=== PATIENT | female | born 1965 | race Hispanic/Latino ===

== ENCOUNTER → 2018-06-28 | Outpatient (CLI) | payer BC ==
--- NOTE | 2018-07-04 08:37 | Diagnostic Imaging Report ---
#[id number] - MGSCRBIL #BILATERAL DIGITAL SCREENING MAMMOGRAM WITH CAD: 06/28/2018 CLINICAL: Routine screening. Comparison is made to exams dated: 06/18/2017 mammogram, 07/22/2015 mammogram and 07/10/2015 mammogram - [facility]. Current study contains 4 films. The tissue of both breasts is heterogeneously dense. This may lower the sensitivity of mammography. Current study was also evaluated with a Computer Aided Detection (CAD) system. There are benign calcifications in both breasts. No significant masses, calcifications, or other findings are seen in either breast. There has been no significant interval change. IMPRESSION: BENIGN There is no mammographic evidence of malignancy. A 1 year screening mammogram is recommended. The patient will be notified by letter of the results. Colten giles/ankush:07/01/2018 13:10:35 Roof Bolter Helper: Katlin NEUMANN(R)(M), [facility] letter sent: Compared to Prior B9 Mammogram BI-RADS: 2 Benign
== END ==
LOC: MAMMO 10:33
PROVIDERS: ATTEND Obstetrics & Gynecology
DX: Z12.31 Encounter for screening mammogram for malignant neoplasm of breast (principal)
CPT/HCPCS: 77067

== ENCOUNTER 2018-12-04 14:48 | Emergency (ER) | payer BC ==
[~2018-12-04] VITALS: Ht 162.6 cm; Wt 72.6 kg
--- OUTSIDE RECORDS SUMMARY | 2018-12-04 14:52 | XMS REPORT ---
[facility] Address Unknown Phone Unavailable Care Team Providers Care Physics Professor Name Role Phone CHRYSTAL DE LA O Unavailable Unavailable Problems This patient has no known problems. Allergies, Adverse Reactions, Alerts This patient has no known allergies or adverse reactions. Medications This patient has no known medications. Results Test Description Test Time Test Comments Text Results Atomic Results Result Comments MAMMOGRAPHY DIGITAL SCR BILAT 2018-06-28 13:04:00 [place] [address] Patient Name: GUTIERREZ LINDO MR #: [id number] : 1965 Age/Sex: 52/F Req #: [id number] [facility] Physician: Ordered by: CHRYSTAL DE LA O MD Report #: [id number] Location: MAMMO Room/Bed: Procedure: [id number] MG/MAMMOGRAPHY DIGITAL SCR BILAT Exam Date: 06/28/18 Exam Time: 1100 REPORT STATUS: Signed #[id number] - MGSCRBIL #BILATERAL DIGITAL SCREENING MAMMOGRAM WITH CAD: 06/28/2018 CLINICAL: Routine screening. Comparison is made to exams dated: 06/18/2017 mammogram, 07/22/2015 mammogram and 07/10/2015 mammogram - [facility]. Current study contains 4 films. The tissue of both breasts is heterogeneously dense. This may lower the sensitivity of mammography. Current study was also evaluated with a Computer Aided Detection (CAD) system. There are benign calcifications in both breasts. No significant masses, calcifications, or other findings are seen in either breast. There has been no significant interval change. IMPRESSION: BENIGN There is no mammographic evidence of malignancy. A 1 year screening mammogram is recommended. The patient will be notified by letter of the results. Anastacia giles/nury:07/01/2018 13:10:35 [employer]: Katlin Armstrong RT(R)(M), [facility] letter sent: Compared to Prior B9 Mammogram BI-RADS: 2 Benign Dictated By: ANASTACIA HUTCHISON DO 09 Transcribed By: NURY on 07/01/18 131 COPY TO: CHRYSTAL DE LA O MD MAMMOGRAPHY DIGITAL SCR BILAT [place] [address] Patient Name: GUTIERREZ LINDO MR #: [id number] : 1965 Age/Sex: 51/F Req #: [id number] [facility] Physician: Ordered by: CHRYSTAL DE LA O MD Report #: [id number] Location: MAMMO Room/Bed: Procedure: [id number] MG/MAMMOGRAPHY DIGITAL SCR BILAT Exam Date: 06/18/17 Exam Time: 0850 REPORT STATUS: Signed #[id number] - MGSCRBIL #BILATERAL DIGITAL SCREENING MAMMOGRAM WITH CAD: 06/18/2017 CLINICAL: Routine screening. Comparison is made to exams dated: 06/18/2016 mammogram, 07/22/2015 mammogram and 07/10/2015 mammogram - [facility]. Current study contains 4 films. The tissue of both breasts is heterogeneously dense. This may lower the sensitivity of mammography. Current study was also evaluated with a Computer Aided Detection (CAD) system. There are benign calcifications in both breasts. No significant masses, calcifications, or other findings are seen in either breast. There has been no significant interval change. IMPRESSION: BENIGN There is no mammographic evidence of malignancy. A 1 year screening mammogram is recommended. The patient will be notified by letter of the results. Anastacia giles/nury:06/22/2017 08:09:15 [employer]: Katlin NEUMANN(R)(M), [facility] letter sent: Compared to Prior B9 Mammogram BI- RADS: 2 Benign Dictated By: ANASTACIA HUTCHISON DO 8 Transcribed By: NURY on 06/22/17808 COPY TO: CHRYSTAL DE LA O MD
[2018-12-04] MEDS ORDERED: LIDOCAINE HCL 1% LOCAL INJ 20 ML VIAL INJ NR (15:30)
[2018-12-04] MEDS ORDERED: NEOMYCIN/POLYMYX/BACITR OINT 0.9 GM PKT TOP ONE (15:30)
[2018-12-04] MEDS ORDERED: DIPHTH/TETANUS/ACEL. PERTUSSIS 0.5 ML SYR IM ONE (15:30)
--- NOTE | 2018-12-04 16:11 | Diagnostic Imaging Report ---
Exam: Left hand radiographs-3 views History: Hand laceration. Comparison: None. Findings: No evidence of acute fracture or malalignment. There is soft tissue edema in the proximal aspect of the index and middle fingers. No evidence of radiopaque foreign body. Impression: Soft tissue edema in the proximal aspect of the index and middle fingers without evidence of fracture or radiopaque foreign body. Signed by: Dr. Sammy Crawford MD on 12/04/2018 4:07 PM
[2018-12-04] MEDS ORDERED: TETANUS/DIPHTHERIA TOX ADULT 0.5 ML SYR IM NR (16:45)
[2018-12-04 17:33] VITALS: BP 131/86
== END 2018-12-04 17:45 | disposition home or self-care (01) ==
LOC: ER 14:48
DX: S61.412A Laceration without foreign body of left hand, initial encounter (principal); S61.215A Laceration without foreign body of left ring finger without damage to nail, initial encounter; W26.8XXA Contact with other sharp object(s), not elsewhere classified, initial encounter; Y92.008 Other place in unspecified non-institutional (private) residence as the place of occurrence of the external cause
CPT/HCPCS: 13132; 73130; 90471; 90714; 99284; J2001

== ENCOUNTER → 2019-07-06 | Outpatient (CLI) | payer BC | LOC: MAMMO 09:00 | PROVIDERS: ATTEND Obstetrics & Gynecology | DX: Z12.31 Encounter for screening mammogram for malignant neoplasm of breast (principal) | CPT/HCPCS: 77067 ==

== ENCOUNTER → 2020-07-04 | Outpatient (CLI) | payer BC | LOC: MAMMO 08:50 | PROVIDERS: ATTEND Obstetrics & Gynecology | DX: Z12.31 Encounter for screening mammogram for malignant neoplasm of breast (principal) | CPT/HCPCS: 77067 ==

== ENCOUNTER → 2021-07-08 | Outpatient (CLI) | payer OTHER | LOC: MAMMO 14:34 | PROVIDERS: ATTEND Internal Medicine | DX: Z12.31 Encounter for screening mammogram for malignant neoplasm of breast (principal) | CPT/HCPCS: 77067 ==

== ENCOUNTER → 2021-07-31 | Outpatient (CLI) | payer OTHER | LOC: MAMMO 09:53 | PROVIDERS: ATTEND Internal Medicine | DX: N63.20 Unspecified lump in the left breast, unspecified quadrant (principal) ==

== ENCOUNTER → 2022-10-30 | Outpatient (CLI) | payer BC | LOC: MAMMO 10:40 | PROVIDERS: ATTEND Obstetrics & Gynecology | DX: Z12.31 Encounter for screening mammogram for malignant neoplasm of breast (principal) | CPT/HCPCS: 77067 ==

== ENCOUNTER → 2024-11-23 | Outpatient (REF) | payer BC | LOC: MAMMO 10:43 | PROVIDERS: ATTEND Obstetrics & Gynecology | DX: Z12.31 Encounter for screening mammogram for malignant neoplasm of breast (principal) | CPT/HCPCS: 77067 ==